=== PATIENT | female | born 1990 | race Caucasian/White ===

== ENCOUNTER 2018-12-08 22:42 | Emergency (ER) | payer MEDICAID ==
[2018-12-09] MEDS: FLUORESCEIN STRIP BOTH EYES (02:57)
[2018-12-09] MEDS: TETRACAINE 0.5% 4 ML OPH BOTH EYES (02:58)
[2018-12-09] MEDS: SODIUM CHLORIDE 0.9% 1L IRRIG IRR (02:59)
[2018-12-09] MEDS: DIPHTH/TET/ACEL PERTUSS (ADULT) 0.5 ML VIAL IM* (02:59)
== END 2018-12-09 04:31 | disposition home or self-care (01) ==
LOC: FTE 12-09 04:31
DX: T54.3X1A Toxic effect of corrosive alkalis and alkali-like substances, accidental (unintentional), initial encounter (principal); Z23 Encounter for immunization
CPT/HCPCS: 90471; 90715; 99283-25